=== PATIENT | female | born 1985 | race African-American/Black ===

== ENCOUNTER → 2023-08-21 | Emergency (ER) | payer BC, SELFPAY ==
--- OUTSIDE RECORDS SUMMARY | 2023-08-21 06:20 | XMS REPORT | Continuity of Care Document ---
Author Name Unknown Address [facility] [address] [facility] Address [facility] [address] [place] [address] Care Team Providers Care Line Service Attendant Name Role Phone [email or web address] Attending Clinician FANNY Montero APRN Attending Clinician LEONORA Morton M.D. Attending Clinician Galen ibarra [email or web address] Admitting Clinician Galen ibarra Problems Condition Name Condition Details Condition Category Status Onset Date Resolution Date Last Treatment Date Treating Clinician Comments Source Type I or II open fracture of right ankle, initial encounter Type I or II open fracture of right ankle, initial encounter Problem Active [facility] Knee laceration , right, initial encounter Knee laceration , right, initial encounter Problem Active [facility] Encounters Start Date/Time End Date/Time Encounter Type Admission Type Attending Clinicians Care Facility Care Department Encounter ID Source 2023-06-22 00:00:2023-06-22 00:00:00 Outpatient [email or web address]_Ka [email or web address]_S [facility] [id number] [facility] 2020-02-21 11:45:00 2020-02-21 11:45:00 Appointmen t; FANNY RUELAS APRN COCKERHAM, AMY, APRN [facility] [id number] [facility] 2020-02-14 12:00:00 2020-02-14 12:00:00 Appointmen indu; FANNY RUELAS APRN COCKERHAM, AMY, APRN [facility]TP [id number] [facility] 2020-01-22 07:00:00 2020-01-22 07:00:00 LEONORA Carlson M.D. ROUTT, LEONORA, M.D. UTP UTP [id number] [facility] Results Test Description Test Time Test Comments Results Resul t Comments Source [U] XRAY ANKLE MIN 3 VWS RIGHT [id number] 2020-02-14 11:48:00 Images acquired, not reported on this accession number. [facility]
--- NOTE | 2023-08-21 06:46 | EDPHYS ---
Physician Documentation [facility] Name: Aviva Valdez Age: 37 yrs Sex: Female : 1985 Arrival Date: 08/21/2023 Time: 06:18 Bed 5 Private MD: ED Physician Jaleel Mathew HPI: 08/21 06:42 This 37 yrs old Black Female presents to ER via Unassigned with complaints of upset, savannah talking loudly. 06:42 The patient presents with agitation. Onset: The symptoms/episode began/occurred just savannah prior to arrival. Possible causes: unknown. Associated signs and symptoms: Pertinent positives: agitation. Current symptoms: In the emergency department the patient's symptoms are unchanged from the initial presentation. Patient's baseline: Neuro: alert and fully oriented. It is unknown whether or not the patient has had similar symptoms in the past. Historical: - Allergies: 06:29 No Known Allergies; pf1 - PMHx: 06:29 None; pf1 - PSHx: 06:29 breast augmentation; tummy tuck; pf1 - Immunization history:: Adult Immunizations not up to date, Client reports having NOT received the Covid vaccine. Last tetanus immunization: > 10 years ago Flu vaccine is not up to date. - Family history:: not pertinent. - Social history:: Smoking status: Patient reports the use of cigarette tobacco products, denies chronic smoking, but will smoke occasionally, Patient/guardian denies using alcohol, street drugs. ROS: 06:43 Constitutional: Negative for fever, chills, and weight loss, Eyes: Negative for injury, savannah pain, redness, and discharge, ENT: Negative for injury, pain, and discharge, Neck: Negative for injury, pain, and swelling, Cardiovascular: Negative for chest pain, palpitations, and edema, Respiratory: Negative for shortness of breath, cough, wheezing, and pleuritic chest pain, Abdomen/GI: Negative for abdominal pain, nausea, vomiting, diarrhea, and constipation, Back: Negative for injury and pain, : Negative for injury, bleeding, discharge, and swelling, MS/Extremity: Negative for injury and deformity, Skin: Negative for injury, rash, and discoloration, Neuro: Negative for headache, weakness, numbness, tingling, and seizure, Allergy/Immunology: Negative for hives, rash, and allergies, Endocrine: Negative for neck swelling, polydipsia, polyuria, polyphagia, and marked weight changes, Hematologic/Lymphatic: Negative for swollen nodes, abnormal bleeding, and unusual bruising, 06:43 Psych: Positive for anxiety, upset, Exam: 06:43 Constitutional: This is a well developed, well nourished patient who is awake, alert, savannah and in no acute distress. Head/Face: Normocephalic, atraumatic. Eyes: Pupils equal round and reactive to light, extra-ocular motions intact. Lids and lashes normal. Conjunctiva and sclera are non-icteric and not injected. Cornea within normal limits. Periorbital areas with no swelling, redness, or edema. ENT: Nares patent. No nasal discharge, no septal abnormalities noted. Tympanic membranes are normal and external auditory canals are clear. Oropharynx with no redness, swelling, or masses, exudates, or evidence of obstruction, uvula midline. Mucous membranes moist. Neck: Trachea midline, no thyromegaly or masses palpated, and no cervical lymphadenopathy. Supple, full range of motion without nuchal rigidity, or vertebral point tenderness. No Meningismus. Chest/axilla: Normal chest wall appearance and motion. Nontender with no deformity. No lesions are appreciated. Cardiovascular: Regular rate and rhythm with a normal S1 and S2. No gallops, murmurs, or rubs. Normal PMI, no JVD. No pulse deficits. Respiratory: Lungs have equal breath sounds bilaterally, clear to auscultation and percussion. No rales, rhonchi or wheezes noted. No increased work of breathing, no retractions or nasal flaring. Abdomen/GI: Soft, non-tender, with normal bowel sounds. No distension or tympany. No guarding or rebound. No evidence of tenderness throughout. Back: No spinal tenderness. No costovertebral tenderness. Full range of motion. Skin: Warm, dry with normal turgor. Normal color with no rashes, no lesions, and no evidence of cellulitis. MS/ Extremity: Pulses equal, no cyanosis. Neurovascular intact. Full, normal range of motion. Neuro: Awake and alert, GCS 15, oriented to person, place, time, and situation. Cranial nerves II-XII grossly intact. Motor strength 5/5 in all extremities. Sensory grossly intact. Cerebellar exam normal. Normal gait. Psych: Awake, alert, with orientation to person, place and time. Behavior, mood, and affect are within normal limits. Vital Signs: 06:29 BP 148 / 91; Pulse 79; Resp 16; Temp 97.6; Pulse Ox 97% on R/A; Weight 65.77 kg; Height pf1 5 ft. 8 in. ; Pain 0/10; 06:29 Body Mass Index 22.05 (65.77 kg, 172.72 cm) pf1 06:29 Pain Scale: Adult pf1 MDM: 06:27 Patient medically screened. savannah 06:44 Differential diagnosis: drug withdrawal. acute psychotic break, depression, psychosis savannah secondary to non-compliance. Differential Diagnosis: electrolyte abnormality, alcohol intoxication. Data reviewed: vital signs, nurses notes. Consideration of Admission/Observation Escalation of care including admission/observation considered. I considered the following discharge prescriptions or medication management in the emergency department Medications were administered in the Emergency Department. See MAR. Test considered but Not performed: EKG: no ekg. Care significantly affected by the following chronic conditions: none. Administered Medications: No medications were administered Disposition Summary: 08/21/23 06:46 Discharge Ordered Notes: Location: Home savannah Problem: new savannah Symptoms: have improved savannah Condition: Stable savannah Diagnosis - Adjustment disorder with disturbance of conduct savannah - Adjustment disorder with mixed anxiety and depressed mood savannah Followup: savannah - With: Private Physician - When: 1 - 2 days - Reason: Recheck today's complaints, Continuance of care, Re-evaluation by your physician Followup: savannah - With: Glynn Hernandez MD - When: 2 - 3 days - Reason: Recheck today's complaints, Re-evaluation by your physician Discharge Instructions: - Discharge Summary Sheet savannah - Adjustment Disorder, Adult savannah - Supporting Someone With Anxiety savannah - Managing Anxiety, Adult savannah Forms: - Medication Reconciliation Form savannah - Thank You Letter savannah - Antibiotic Education savannah - Prescription Opioid Use savannah - Patient Portal Instructions savannah - Leadership Thank You Letter savannah Signatures: Jaleel Mathew MD MD cha Finley, Pamala RN RN pf1
--- NOTE | 2023-08-21 07:01 | ER ---
Nurse's Notes [facility] Name: Aviva Valdez Age: 37 yrs Sex: Female : 1985 Arrival Date: 08/21/2023 Time: 06:18 Bed 5 Private MD: Diagnosis: Adjustment disorder with disturbance of conduct;Adjustment disorder with mixed anxiety and depressed mood Presentation: 08/21 06:29 Chief complaint: [place] PD Officer Early brought patient to ER with MADDIE in place, pf1 stated they were called for a disturbance where the patient was staying at a friend house for 2 days, C/O patient was yelling at her friend, shouting biblical things, acting very angry towards her friend. Patient denies any suicidal or homicidal ideations. Officer stated the friend first called the patient's parents to come get her, but patient refused to go with her parent's so Officer Early stated was ordered by his Supervisor Pressing Department to place and MADDIE on the patient for deterioration. 06:29 Coronavirus screen: Vaccine status: Patient reports being unvaccinated. Client denies pf1 travel out of the [place] in the last 14 days. At this time, the client does not indicate any symptoms associated with coronavirus-19. Ebola Screen: Patient negative for fever greater than or equal to 101.5 degrees Fahrenheit, and additional compatible Ebola Virus Disease symptoms. Initial Sepsis Screen: Does the patient meet any 2 criteria? No. Patient's initial sepsis screen is negative. Does the patient have a suspected source of infection? No. Patient's initial sepsis screen is negative. Risk Assessment: Do you want to hurt yourself or someone else? Patient reports no desire to harm self or others. 06:29 Method Of Arrival: Law Enforcement: [place] NOLAN pf1 06:29 Acuity: ANNELIESE 3 pf1 Historical: - Allergies: 06:29 No Known Allergies; pf1 - PMHx: 06:29 None; pf1 - PSHx: 06:29 breast augmentation; tummy tuck; pf1 - Immunization history:: Adult Immunizations not up to date, Client reports having NOT received the Covid vaccine. Last tetanus immunization: > 10 years ago Flu vaccine is not up to date. - Family history:: not pertinent. - Social history:: Smoking status: Patient reports the use of cigarette tobacco products, denies chronic smoking, but will smoke occasionally, Patient/guardian denies using alcohol, street drugs. Screenin:29 [facility] ED Fall Risk Assessment (Adult) History of falling in the last 3 months, pf1 including since admission No falls in past 3 months (0 pts) Confusion or Disorientation No (0 pts) Intoxicated or Sedated No (0 pts) Impaired Gait No (0 pts) Mobility Assist Device Used No (0 pt) Altered Elimination No (0 pt) Score/Fall Risk Level 0 - 2 = Low Risk Oriented to surroundings, Maintained a safe environment, Educated pt \T\ family on fall prevention, incl call for assistance when getting out of bed, Assessed \T\ reinforced patient's understanding of fall precautions, Provided non-skid footwear, Hourly rounding (assess needs \T\ fall precautionary measures) done, Used ambulatory aids as needed (educated on \T\ assisted with), Used gait belt as appropriate. 06:29 Abuse screen: Denies threats or abuse. Nutritional screening: No deficits noted. pf1 Tuberculosis screening: No symptoms or risk factors identified. Assessment: 06:30 General: Appears in no apparent distress. comfortable, well groomed, well developed, pf1 Behavior is agitated. 06:30 Pain: Denies pain. Neuro: No deficits noted. Level of Consciousness is awake, alert, pf1 obeys commands, Oriented to person, place, time, situation. Cardiovascular: No deficits noted. Capillary refill < 3 seconds Patient's skin is warm and dry. Respiratory: No deficits noted. Airway is patent Respiratory effort is even, unlabored, Respiratory pattern is regular, symmetrical. GI: No deficits noted. No signs and/or symptoms were reported involving the gastrointestinal system. : No deficits noted. No signs and/or symptoms were reported regarding the genitourinary system. EENT: No deficits noted. No signs and/or symptoms were reported regarding the EENT system. Derm: No deficits noted. No signs and/or symptoms reported regarding the dermatologic system. Musculoskeletal: No deficits noted. No signs and/or symptoms reported regarding the musculoskeletal system. Vital Signs: 06:29 BP 148 / 91; Pulse 79; Resp 16; Temp 97.6; Pulse Ox 97% on R/A; Weight 65.77 kg; Height pf1 5 ft. 8 in. ; Pain 0/10; 06:29 Body Mass Index 22.05 (65.77 kg, 172.72 cm) pf1 06:29 Pain Scale: Adult pf1 ED Course: 06:26 Patient arrived in ED. ag3 06:27 Jaleel Mathew MD is Attending Physician. [facility] 06:29 Arm band placed on right wrist. pf1 06:29 Patient has correct armband on for positive identification. Bed in low position. Call pf1 light in reach. 06:29 No provider procedures requiring assistance completed. pf1 06:29 Patient did not have IV access during this emergency room visit. pf1 06:46 Glynn Hernandez MD is Referral Physician. [facility] 07:00 Provided Education on: follow up. pf1 07:55 Triage completed. pf1 Administered Medications: No medications were administered Medication: 06:29 VIS not applicable for this client. pf1 Outcome: 06:46 Discharge ordered by . [facility] 07:00 Discharged to home ambulatory, pf1 07:00 Condition: improved 07:00 Discharge instructions given to patient, Instructed on discharge instructions, follow up and referral plans. Demonstrated understanding of instructions, follow-up care, 07:00 Patient left the ED. pf1 Signatures: Jaleel Mathew MD MD cha Gomez, Alice 3 Char Rosenbaum, RN RN pf1
== END ==
LOC: ER 06:18
DX: F43.23 Adjustment disorder with mixed anxiety and depressed mood (principal); F43.24 Adjustment disorder with disturbance of conduct
CPT/HCPCS: 99282